=== PATIENT | female | born 1990 | race Caucasian/White ===

== ENCOUNTER 2024-04-14 05:03 | Emergency (ER) | payer SELFPAY ==
[~2024-04-14] VITALS: Ht 172.7 cm; Wt 66.0 kg
[2024-04-14 05:25] VITALS: BP 123/100; PULSE 110; RESP 18; TEMP 98.5; O2SAT 99
== END 2024-04-14 08:34 | disposition left against medical advice (07) ==
LOC: ER 05:03
DX: Z76.89 Persons encountering health services in other specified circumstances (principal); Z53.21 Procedure and treatment not carried out due to patient leaving prior to being seen by health care provider

== ENCOUNTER 2024-04-18 17:05 | Emergency (ER) | payer OTHER ==
[~2024-04-18] VITALS: Ht 170.2 cm; Wt 58.0 kg
[2024-04-18 17:17] VITALS: TEMP 98.5; O2SAT 97
[2024-04-18 18:04] LABS: BASOPHILS % 0.3 % (0.0-2.0); EOSINOPHILS % 0.6 % (0.0-5.0); HEMATOCRIT. 42.7 % (36.0-48.0); HEMOGLOBIN. 14.5 g/dL (12.0-16.0); LYMPHOCYTES % 22.3 % (20.0-50.0); MEAN CORPUSCULAR HEMOGLOBIN 33.3 pg (28.0-32.0); MEAN CORPUSCULAR HGB CONC 34.1 g/dL (31.0-37.0); MEAN CORPUSCULAR VOLUME 97.7 fL (81.0-99.0); MEAN PLATELET VOLUME 7.8 fl (7.4-10.4); MONOCYTES % 7.1 % (2.0-8.0); NEUTROPHILS % 69.7 % (40.0-76.0); PLATELET 108 x1000/uL (130-400); RED BLOOD CELL COUNT 4.37 mill/uL (4.2-5.4); RED CELL DISTRIBUTION WIDTH 13.4 % (11.6-14.6); WHITE BLOOD COUNT 3.9 x1000/uL (4.5-11.0)
[2024-04-18 18:11] LABS: CHLORIDE 94 mEq/L (98-107); POTASSIUM 3.4 mEq/L (3.5-5.1); SODIUM 137 mEq/L (136-145)
[2024-04-18 18:12] LABS: CALCIUM 9.2 mg/dL (8.7-10.4); CARBON DIOXIDE 33 mEq/L (21-32)
[2024-04-18 18:17] LABS: CREATININE 0.9 mg/dL (0.6-1.0); GLUCOSE 111 mg/dL (70-105); UREA NITROGEN BLOOD 8 mg/dL (9-23)
[2024-04-18 18:19] LABS: ALANINE AMINOTRANSFERASE 31 IU/L (10-49); ALBUMIN 4.2 g/dL (3.2-4.8); ASPARTATE AMINOTRANSFERASE 72 IU/L (<34); BILIRUBIN DIRECT 0.2 mg/dL (<=3.0)
[2024-04-18 18:20] LABS: BILIRUBIN TOTAL 0.5 mg/dL (0.1-1.0); PROTEIN TOTAL 7.1 g/dL (6.0-8.3)
[2024-04-18] MEDS ORDERED: ONDANSETRON 4MG ODT PO STA (19:00)
[2024-04-18] MEDS ORDERED: DICYCLOMINE 10 MG/5 ML ORAL SYR PO STA (19:00)
[2024-04-18] MEDS ORDERED: MAGNESIUM/ALUMINUM HYDROXIDE/SIMETHICONE 30ML UDC PO STA (19:00)
[2024-04-18 19:59] LABS: HCG SCREEN NEGATIVE
[2024-04-18] MEDS: SODIUM CHLORIDE 0.9% 1,000 ML IV ONE (20:30)
[2024-04-18 20:41] LABS: CLARITY URINE TURBID (CLEAR); COLOR URINE DARK YELLOW (YELLOW); GLUCOSE URINE NEGATIVE (NEGATIVE); KETONES URINE TRACE (NEGATIVE); LEUKOCYTE ESTERASE URINE 2+ (NEGATIVE); NITRITE URINE NEGATIVE (NEGATIVE); OCCULT BLOOD URINE 1+ (NEGATIVE); PH URINE 6.5 (4.5-8.0); PROTEIN URINE 2+ (NEGATIVE); SPECIFIC GRAVITY URINE 1.023 (1.005-1.030)
[2024-04-18 21:02] LABS: BACTERIA URINE 1+; RBC URINE 0-2 /hpf (0-2); SQUAMOUS EPITHELIAL CELL URINE 2+ /lpf (RARE/1+)
[2024-04-18] MEDS: ONDANSETRON 4MG ODT PO NR (21:30)
[2024-04-18] MEDS: MAGNESIUM/ALUMINUM HYDROXIDE/SIMETHICONE 30ML UDC PO NR (21:30)
[2024-04-18] MEDS ORDERED: NITR-87 MT (21:45)
[2024-04-18] MEDS ORDERED: ONDA4TAB11 PO (21:45)
[2024-04-18] MEDS ORDERED: LOPE2CAP MT (21:45)
[2024-04-18] MEDS: DICYCLOMINE HCL 10MG CAPSULE PO NR (21:59)
[2024-04-18 22:05] VITALS: BP 133/65; PULSE 76; RESP 18
== END 2024-04-18 22:29 | disposition home or self-care (01) ==
LOC: ER 17:05
DX: K52.9 Noninfective gastroenteritis and colitis, unspecified (principal); N39.0 Urinary tract infection, site not specified
CPT/HCPCS: 99284; 80076; 80048; 81003; 81025; 84703; 83690; 85025; 36415; Q0162; J7030

== ENCOUNTER 2024-04-19 13:41 | Emergency (ER) | payer OTHER ==
[~2024-04-19] VITALS: Ht 172.7 cm; Wt 63.0 kg
[~2024-04-19 13:41] MED LIST: LOPE2CAP MT; NITR-87 MT; ONDA4TAB11 PO
[2024-04-19 13:47] VITALS: O2SAT 97
[2024-04-19] MEDS ORDERED: DICYCLOMINE HCL 10MG/ML 2ML VIAL IM ONE (14:15)
[2024-04-19] MEDS ORDERED: ONDANSETRON HCL 4MG/2ML INJ IV ONE (14:15)
[2024-04-19 14:26] LABS: BASOPHILS % 0.8 % (0.0-2.0); EOSINOPHILS % 0.9 % (0.0-5.0); HEMATOCRIT. 43.6 % (36.0-48.0); HEMOGLOBIN. 14.7 g/dL (12.0-16.0); MEAN CORPUSCULAR HEMOGLOBIN 32.9 pg (28.0-32.0); MEAN CORPUSCULAR HGB CONC 33.8 g/dL (31.0-37.0); MEAN CORPUSCULAR VOLUME 97.4 fL (81.0-99.0); MEAN PLATELET VOLUME 7.6 fl (7.4-10.4); MONOCYTES % 9.6 % (2.0-8.0); NEUTROPHILS % 49.7 % (40.0-76.0); PLATELET 109 x1000/uL (130-400); RED BLOOD CELL COUNT 4.48 mill/uL (4.2-5.4); RED CELL DISTRIBUTION WIDTH 13.5 % (11.6-14.6); WHITE BLOOD COUNT 3.4 x1000/uL (4.5-11.0)
[2024-04-19 14:36] LABS: CHLORIDE 92 mEq/L (98-107); POTASSIUM 3.3 mEq/L (3.5-5.1); SODIUM 136 mEq/L (136-145)
[2024-04-19 14:37] LABS: CALCIUM 9.1 mg/dL (8.7-10.4); CARBON DIOXIDE 33 mEq/L (21-32)
[2024-04-19 14:42] LABS: CREATININE 0.8 mg/dL (0.6-1.0); GLUCOSE 104 mg/dL (70-105); UREA NITROGEN BLOOD 10 mg/dL (9-23)
[2024-04-19 14:43] LABS: HCG SCREEN NEGATIVE
[2024-04-19 14:44] LABS: ALANINE AMINOTRANSFERASE 31 IU/L (10-49); ALBUMIN 4.2 g/dL (3.2-4.8); ASPARTATE AMINOTRANSFERASE 79 IU/L (<34); BILIRUBIN TOTAL 0.6 mg/dL (0.1-1.0); PROTEIN TOTAL 7.2 g/dL (6.0-8.3)
[2024-04-19] MEDS ORDERED: POTASSIUM CHLORIDE 20MEQ/PACKET PO ONE (16:45)
[2024-04-19] MEDS: SODIUM CHLORIDE 0.9% 1,000 ML IV ONE (18:23)
[2024-04-19] MEDS: POTASSIUM CHLORIDE 20MEQ/PACKET PO NR (18:23)
[2024-04-19] MEDS: DICYCLOMINE HCL 10MG CAPSULE PO NR (18:23)
[2024-04-19] MEDS: ONDANSETRON HCL 4MG/2ML INJ IV NR (18:23)
[2024-04-19 21:26] VITALS: BP 115/77; PULSE 85; RESP 16; TEMP 98.9
== END 2024-04-19 21:27 | disposition home or self-care (01) ==
LOC: ER 13:41
DX: R10.13 Epigastric pain (principal); R11.2 Nausea with vomiting, unspecified; E87.6 Hypokalemia
CPT/HCPCS: 80053; 84703; 83690; 85025; 36415; 74176; 96361; 96374; 99285; J2405; J7030; Z7610 ×3; J0500